=== PATIENT | female | born 1950 | race Caucasian/White ===

== ENCOUNTER 2017-06-16 13:00 | Inpatient (IN) | payer MEDICARE ==
[~2017-06-16] VITALS: Ht 152.4 cm; Wt 57.2 kg
--- NOTE | 2017-06-16 13:00 | NUR ---
BBRA 102 FROM AN URGENT CARE FOR ASTHMA ATTACK, SOB X 3 DAYS
[2017-06-16] MEDS ORDERED: predniSONE 20 MG TABLET ONE (13:52)
--- NOTE | 2017-06-16 13:58 | NUR ---
CALLED RT FOR BREATHING TX
[2017-06-16] MEDS ORDERED: ALBUTEROL FS 2.5 MG/3 ML VIAL.NEB ONE (14:00)
[2017-06-16] MEDS ORDERED: ALBUTEROL FS 2.5 MG/3 ML VIAL.NEB NEB ONE (14:00)
[2017-06-16] MEDS ORDERED: IPRATROPIUM NEB FS 0.5 MG/2.5 ML AMPUL.NEB ONE (14:00)
[2017-06-16] MEDS ORDERED: IPRATROPIUM NEB FS 0.5 MG/2.5 ML AMPUL.NEB NEB ONE (14:00)
[2017-06-16] MEDS ORDERED: predniSONE 20 MG TABLET PO ONE (14:00)
[2017-06-16 14:54] LABS: BASOPHILS # (AUTO) 0.2 /CMM (0.0-0.2); BASOPHILS % (AUTO) 1.6 % (0.0-2.0); EOSINOPHILS % (AUTO) 0.1 % (0.0-6.0); HEMATOCRIT 38 % (33-45); HEMOGLOBIN 13.4 g/dL (11.5-14.8); LYMPHOCYTES # (AUTO) 0.8 /CMM (0.8-4.8); LYMPHOCYTES % (AUTO) 7.7 % (20.0-44.0); MEAN CORPUSCULAR HEMOGLOBIN 34 PG (26.0-33.0); MEAN CORPUSCULAR HGB CONC 36 g/dl (31.0-36.0); MEAN CORPUSCULAR VOLUME 97 fL (82-100); MONOCYTES # (AUTO) 0.6 /CMM (0.1-1.30); MONOCYTES % (AUTO) 5.8 % (2.0-12.0); NEUTROPHILS # (AUTO) 8.7 /CMM (1.8-8.9); NEUTROPHILS % (AUTO) 84.8 % (43.0-81.0); PLATELET COUNT (AUTO) 278 /CMM (150-450); RDW COEFFICIENT OF VARIATION 13.3 (11.5-15.0); RED BLOOD CELL COUNT(AUTO) 3.88 MIL/uL (4.0-5.2); WHITE BLOOD COUNT (AUTO) 10.3 K/uL (4.3-11.0)
[2017-06-16 15:05] LABS: CALCIUM, SERUM 9.4 mg/dL (8.5-10.1); CREATININE 0.6 mg/dL (0.6-1.3); POTASSIUM 4.1 mmol/L (3.5-5.1)
[2017-06-16 15:07] LABS: INR 0.93 (0.87-1.13); PROTHROMBIN TIME 9.7 SECS (9.5-12.7)
[2017-06-16 15:14] LABS: TROPONIN I 1.005 ng/mL (0.00-0.056)
[2017-06-16] MEDS ORDERED: IV NS 0.9% 1,000 ML BAG IV ONE ×2 (15:30→19:30)
--- NOTE | 2017-06-16 15:38 | NUR ---
ERIC PAGED, PAD CUTTER
[2017-06-16] MEDS ORDERED: ASPIRIN 325 MG TABLET ONE (15:47)
[2017-06-16] MEDS ORDERED: ALPR1TAB7 PO (15:59)
[2017-06-16] MEDS ORDERED: DICY10CA59 PO (15:59)
[2017-06-16] MEDS ORDERED: BUTA1CAP46 PO (15:59)
[2017-06-16] MEDS ORDERED: VENL150T PO (15:59)
[2017-06-16] MEDS ORDERED: ZIPR40CA2 PO (15:59)
[2017-06-16] MEDS ORDERED: [UNRECOGNIZED DRUG - CODE] PO (15:59)
[2017-06-16] MEDS ORDERED: METO-358 PO (15:59)
[2017-06-16] MEDS ORDERED: CARI350T PO (15:59)
[2017-06-16] MEDS ORDERED: D-AM10TA2 PO (15:59)
[2017-06-16 16:00] VITALS: BP 143/81
[2017-06-16] MEDS ORDERED: ASPIRIN 325 MG TABLET PO ONE (16:00)
--- NOTE | 2017-06-16 16:14 | NUR ---
GAVE REPORT TO SHALA/TYLER RN ROOM 317-[address] VAUGHN
--- NOTE | 2017-06-16 16:30 | NUR ---
ROOFING MACHINE OPERATOR NOTES RECEIVED PATIENT FROM ER IN STABLE CONDITION NOTED WITH SOB ON EXERTION. PATIENT ON 2 L OF OXYGEN. DENIES ANY CHEST PAIN. REPORTS BEING ANXIOUS. STATES SHE HAS BEEN TO MULTIPLE HOSPITALS DUE TO SOB AND ANXIETY PAST 3 DAYS. PATIENT ORIENTED TO ROOM. CALL LIGHT WITHIN REACH. PERIPHERAL IV ON RIGHT WRIST INTACT PATENT. NOTED WITH ELEVATED TROP MD AWARE WAITING FOR EVALUATION.
--- NOTE | 2017-06-16 17:00 | NUR ---
VIDEO RECORDER MECHANIC NOTES PATIENT IN BED RESTING NO SOB OR ACUTE DISTRESS. DENIES CHEST PAIN. SKIN ASSESSED NOTED WITH BRUISING ON RIGHT EXTREMITY. STATES SHE HAD A FALL COUPLE OF WEEKS AGO. CALL LIGHT WITHIN REACH. PATIENTS FRIEND AT BEDSIDE. WILL CONTINUE TO MONITOR.
[2017-06-16] MEDS ORDERED: PANTOPRAZOLE 40 MG TABLET.DR PO SCH (17:30)
[2017-06-16] MEDS: PANTOPRAZOLE 40 MG TABLET.DR PO SCH (17:37)
[2017-06-16] MEDS ORDERED: ACETAMINOPHEN 325 MG TABLET PO PRN (18:30)
[2017-06-16] MEDS ORDERED: MAG HYDROX/AL HYDROX/SIMETH 30 ML UDC PO PRN (18:30)
[2017-06-16] MEDS ORDERED: ZOLPIDEM TARTRATE 5 MG TABLET PO PRN (18:30)
[2017-06-16] MEDS ORDERED: Z GUARD REMEDY 2 OZ OINT TP PRN (18:30)
[2017-06-16] MEDS ORDERED: DICYCLOMINE HCL 10 MG CAPSULE PO PRN (18:30)
[2017-06-16] MEDS ORDERED: ONDANSETRON HCL/PF 4 MG/2 ML VIAL IVP PRN (18:30)
[2017-06-16] MEDS ORDERED: MAGNESIUM HYDROXIDE 30 ML UDC PO PRN (18:30)
[2017-06-16] MEDS ORDERED: HEPARIN INFUSION/D5W 500 ML IV PRN (19:00)
--- NOTE | 2017-06-16 19:00 | NUR ---
LEAD MINER BLASTING NOTES PATIENT IN BED RESTING NO SOB OR ACUTE DISTRESS NOTED. EVALUATE BY DR. VAUGHN ORDERS NOTED AND CARRIED OUT. ALL DUE MEDICATIONS ADMINISTERED. ALL NEEDS MET. PERIPHERAL IV INTACT PATENT RIGHT WRIST. ENDORSED CARE TO PM SHIFT.
[2017-06-16 20:00] VITALS: BP 132/78
[2017-06-16] MEDS ORDERED: IV NS 0.9% 1,000 ML IV PRN (20:00)
[2017-06-16] MEDS: HYDROCODONE/APAP 5/325MG 1 EACH TABLET PO PRN (21:23)
[2017-06-16] MEDS: CARISOPRODOL 350 MG TABLET PO SCH (21:24)
[2017-06-16] MEDS: ALPRAZOLAM 1 MG TABLET PO SCH ×2 (21:24→21:28)
[2017-06-16] MEDS: ZIPRASIDONE 20 MG CAPSULE PO SCH (21:24)
[2017-06-16] MEDS ORDERED: HEPARIN SODIUM, PORCINE 5000 UNITS/1 ML VIAL ONE ×2 (21:33→21:49)
[2017-06-16] MEDS ORDERED: ALPRAZOLAM 1 MG TABLET PO SCH ×2 (22:00)
[2017-06-16] MEDS ORDERED: HEPARIN INFUSION/D5W 500 ML IV ONE (22:09)
[2017-06-17] VITALS: BP 146/80
[2017-06-17] MEDS ORDERED: HEPARIN SODIUM, PORCINE 5000 UNITS/1 ML VIAL IVP SCH
[2017-06-17] MEDS: HEPARIN INFUSION/D5W 500 ML IV PRN (00:39)
--- NOTE | 2017-06-17 00:39 | NUR ---
HEPARIN DRIP CALCULATED WITH BODY WEIGHT OF 56 KG. HEPARIN DRIP WAS STARTED WITH A LOADING DOSE OF 3360 UNITS. INFUSION TO BE RAN AT 650 UNITS/ HR (13 ML/H). LAB WAS ORDERED FOR 6 HRS AFTER BEGINNING. WILL CONTINUE TO MONITOR PT
--- NOTE | 2017-06-17 00:59 | NUR ---
RESTAURANT ATTENDANT INITIAL NOTE REPORT WAS RECEIVED. PT IS IN BED RESTING, A/O X4 ABLE TO MAKE NEEDS KNOWN. NO SIGNS OF SOB OR DISTRESS, BREATHING EVENLY AND UNLABORED. HEPARIN DRIP WAS STARTED WITH JEYSON ALLEN, EDUCATION WAS GIVEN TO THE PT. BED IS IN LOW AND LOCKED POSITION, CALL LIGHT WITHIN REACH. WILL CONTINUE TO MONITOR PT.
[2017-06-17 04:00] VITALS: BP 135/56
--- NOTE | 2017-06-17 04:00 | NUR ---
GARMENT MENDER NOTES LABS WERE DRAWN, APPT IS 49. NO CHANGES TO BE MADE IN REGARDS TO THE HEPARIN DRIP. NEXT BLOOD DRAW SCHEDULED FOR 1000.
[2017-06-17 05:10] LABS: INR 0.96 (0.87-1.13)
[2017-06-17 05:15] LABS: CALCIUM, SERUM 9.7 mg/dL (8.5-10.1); CREATININE 0.7 mg/dL (0.6-1.3); PHOSPHORUS 1.9 mg/dL (2.5-4.9); POTASSIUM 3.8 mmol/L (3.5-5.1)
[2017-06-17 05:23] LABS: HEMATOCRIT 40 % (33-45); HEMOGLOBIN 13.9 g/dL (11.5-14.8); LYMPHOCYTES # (AUTO) 1.1 /CMM (0.8-4.8); LYMPHOCYTES % (AUTO) 11.2 % (20.0-44.0); MEAN CORPUSCULAR HEMOGLOBIN 34 PG (26.0-33.0); MEAN CORPUSCULAR HGB CONC 34 g/dl (31.0-36.0); MEAN CORPUSCULAR VOLUME 99 fL (82-100); MONOCYTES # (AUTO) 0.6 /CMM (0.1-1.30); MONOCYTES % (AUTO) 6.2 % (2.0-12.0); NEUTROPHILS # (AUTO) 7.8 /CMM (1.8-8.9); NEUTROPHILS % (AUTO) 82.6 % (43.0-81.0); PLATELET COUNT (AUTO) 285 /CMM (150-450); RDW COEFFICIENT OF VARIATION 14.2 (11.5-15.0); RED BLOOD CELL COUNT(AUTO) 4.06 MIL/uL (4.0-5.2); WHITE BLOOD COUNT (AUTO) 9.5 K/uL (4.3-11.0)
--- NOTE | 2017-06-17 06:18 | NUR ---
MACHINE SEWER CLOSING NOTES PT IS IN BED ALERT AND WAKE, FEELING ANXIOUS. NO SIGNS OF SOB OR DISTRESS, BREATHING EVENLY AND UNLABORED ON NC. HEPARIN DRIP IS RUNNING, IVF ARE RUNNING. TELE MONITOR SHOWING SR-100 WITH ELEVATED T WAVES. ALL NEEDS WERE ANTICIPATED AND MET. BED IS IN LOW AND LOCKED POSITION, CALL LIGHT WITHIN REACH. WILL ENDORSE TO DAY SHIFT
--- NOTE | 2017-06-17 07:30 | NUR ---
DRY ICE MACHINE OPERATOR/NOTES RECEIVED PT. IN BED A&OX3. BREATHING UNLABORED ON OXYGEN AT 3L/MIN VIA NASAL CANNULA. NO S/S OF ACUTE DISTRESS. IV FLUIDS RUNNING ON RIGHT ARM HEPARIN DRIP 650 UNITS/HR, AND NORMAL SALINE 75 ML/HR. BED IS IN LOWEST AND LOCKED POSITION. 2 SIDE RAILS UP. CALL LIGHT WITHIN REACH. ALL NEEDS MET. WILL CONTINUE TO ASSESS AND MONITOR.
[2017-06-17 08:00] VITALS: BP 140/80
[2017-06-17] MEDS ORDERED: BUTALB/APAP/CAFFEINE 1 EACH TABLET PO PRN (08:00)
[2017-06-17] MEDS ORDERED: METOPROLOL SUCCINATE 50 MG TAB.SR.24H PO SCH (09:00)
[2017-06-17] MEDS ORDERED: THYROID 60 MG TABLET PO SCH (09:00)
[2017-06-17] MEDS ORDERED: ZIPRASIDONE 20 MG CAPSULE PO SCH (09:00)
[2017-06-17] MEDS: ASPIRIN EC 81 MG TABLET.DR PO SCH (10:41)
[2017-06-17] MEDS: PANTOPRAZOLE 40 MG TABLET.DR PO SCH (10:41)
[2017-06-17] MEDS: VENLAFAXINE XR 75 MG CAP.SR.24H PO SCH ×2 (10:42→19:08)
[2017-06-17] MEDS: ZIPRASIDONE 20 MG CAPSULE PO SCH ×2 (10:42→19:08)
[2017-06-17 11:55] LABS: INR 0.93 (0.87-1.13); PROTHROMBIN TIME 9.7 SECS (9.5-12.7)
[2017-06-17 12:02] LABS: CREATININE, URINE 36.7 MG/DL (30.0-125.0)
[2017-06-17] MEDS: THYROID 30 MG TABLET PO SCH (13:05)
[2017-06-17] MEDS ORDERED: CLON0.5T PO (13:36)
[2017-06-17] MEDS ORDERED: HYDR-3205 PO (13:36)
[2017-06-17] MEDS: clonazePAM 0.5 MG TABLET PO PRN (13:55)
[2017-06-17] MEDS: HYDROCODONE/APAP 5/325MG 1 EACH TABLET PO PRN ×2 (13:56→20:10)
[2017-06-17 16:00] VITALS: BP 167/97
[2017-06-17] MEDS ORDERED: Sodium Phosphate 15 MMOL in IV D5W 250 ML IV ONE (16:00)
[2017-06-17] MEDS ORDERED: METOPROLOL TARTRATE INJ 5 MG/5 ML AMPUL ONE ×2 (17:26→18:05)
[2017-06-17 17:32] LABS: INR 0.96 (0.87-1.13)
[2017-06-17] MEDS ORDERED: IOHEXOL-350 100 ML VIAL IV ONE (18:02)
[2017-06-17] MEDS ORDERED: IV NS 0.9% 250 ML IV ONE (18:03)
[2017-06-17] MEDS ORDERED: FUROSEMIDE 20 MG/2 ML VIAL IV ONE (19:00)
[2017-06-17] MEDS ORDERED: ALBUTEROL FS 2.5 MG/0.5 ML VIAL.NEB ONE (19:00)
[2017-06-17] MEDS ORDERED: IPRATROPIUM NEB FS 0.5 MG/2.5 ML AMPUL.NEB ONE (19:00)
[2017-06-17] MEDS: ALBUTEROL FS 2.5 MG/0.5 ML VIAL.NEB NEB PRN (19:13)
[2017-06-17] MEDS: IPRATROPIUM NEB FS 0.5 MG/2.5 ML AMPUL.NEB NEB PRN (19:13)
--- NOTE | 2017-06-17 19:30 | NUR ---
PUBLIC WEIGHER/NOTES PT. IS IN BED A&OX3. BREATHING UNLABORED ON OXYGEN 2L/MIN VIA NASAL CANNULA. NO S/S OF ACUTE DISTRESS. IV FLUIDS RUNNING, HEPARIN DRIP AT 850 UNITS/HR. BED IS IN LOWEST AND LOCKED POSITION. 2 SIDE RAILS UP. CALL LIGHT WITHIN REACH. ALL NEEDS MET. WILL ENDORSE REPORT TO NURSE.
--- NOTE | 2017-06-17 19:40 | NUR ---
DRY CELL SEALER INITIAL NOTES PT IS IN BED AWAKE AND ALERT WITH FAMILY AT BEDSIDE. ON 2L NC, BREATHING SHALLOW BUT NO SIGNS OF DISTRESS. DENIES PAIN. PT IS NOT CURRENTLY ON TELE, WILL PLACE TELE MONITOR BACK ON PT. HEPARIN DRIP RUNNING AT 850 UNITS/ HR, NEXT LAB IS ALREADY SCHEDULED. BED IS IN LOW AND LOCKED POSITION, CALL LIGHT WITHIN REACH. WILL CONTINUE TO MONITOR PT
[2017-06-17 20:00] VITALS: BP 148/83
[2017-06-17] MEDS: ATORVASTATIN 10 MG TABLET PO SCH (21:07)
[2017-06-17] MEDS: CARISOPRODOL 350 MG TABLET PO SCH (21:08)
[2017-06-17] MEDS: ALPRAZOLAM 1 MG TABLET PO SCH (21:08)
[2017-06-18] VITALS: BP 143/86
[2017-06-18] MEDS: HEPARIN INFUSION/D5W 500 ML IV PRN (00:33)
[2017-06-18] MEDS: IPRATROPIUM NEB FS 0.5 MG/2.5 ML AMPUL.NEB NEB PRN ×2 (01:16→21:38)
[2017-06-18] MEDS: ALBUTEROL FS 2.5 MG/0.5 ML VIAL.NEB NEB PRN ×2 (01:16→21:38)
[2017-06-18 01:35] LABS: INR 0.96 (0.87-1.13)
--- NOTE | 2017-06-18 01:50 | NUR ---
HEPARIN DRIP APPT RESULTED AT 45, PER HEPARIN PROTOCOL DRIP WILL BE INCREASED BY 100 UNITS. THE RATE WILL NOW BE 950 UNITS/ HR. LABS ORDERED FOR 0750
[2017-06-18] MEDS: HYDROCODONE/APAP 5/325MG 1 EACH TABLET PO PRN ×5 (02:50→19:31)
[2017-06-18 04:00] VITALS: BP 131/73
--- NOTE | 2017-06-18 06:43 | NUR ---
PUTTYING AND CALKING SUPERVISOR CLOSING NOTES PT IS IN BED AWAKE AND ALERT, STATING THAT THE MEDICATION REGIMEN HELP A LOT LAST NIGHT. BREATHING EVENLY AND UNLABORED ON 2L NC. NO SIGNS OF SOB OR DISTRESS. TELE MONITOR SHOWING SR 79 WITH OCCASIONAL PVC'S. LAB SET TO BE DONE AT 0750 (PT&PTT). HEPARIN INFUSING AT 950 UNITS/HR. ALL NEEDS WERE ANTICIPATED AND MET. BED IS IN LOW AND LOCKED POSITION, CALL LIGHT WITHIN REACH. WILL ENDORSE TO DAYSHIFT
[2017-06-18] MEDS: PANTOPRAZOLE 40 MG TABLET.DR PO SCH (06:54)
[2017-06-18 08:00] VITALS: BP 128/63
[2017-06-18] MEDS: THYROID 30 MG TABLET PO SCH (08:25)
[2017-06-18] MEDS: VENLAFAXINE XR 75 MG CAP.SR.24H PO SCH ×2 (08:25→16:29)
[2017-06-18] MEDS: ASPIRIN EC 81 MG TABLET.DR PO SCH (08:25)
[2017-06-18] MEDS: ZIPRASIDONE 20 MG CAPSULE PO SCH ×2 (08:26→16:30)
[2017-06-18] MEDS ORDERED: DEXTROAMPHETAMINE SULFATE 20 MG PO SCH (09:00)
[2017-06-18 09:12] LABS: INR 0.96 (0.87-1.13)
[2017-06-18] MEDS: clonazePAM 0.5 MG TABLET PO PRN (09:55)
[2017-06-18 12:00] VITALS: BP 143/90
[2017-06-18 13:11] LABS: CALCIUM, SERUM 9.3 mg/dL (8.5-10.1); CREATININE 0.8 mg/dL (0.6-1.3)
[2017-06-18] MEDS: LEVOFLOXACIN 500 MG /D5W 100ML 500 MG in PREMIX 1 EA IV SCH (13:16)
[2017-06-18] MEDS: AMLODIPINE BESYLATE 5 MG TABLET PO SCH (14:43)
[2017-06-18 16:00] VITALS: BP 114/81
--- NOTE | 2017-06-18 18:49 | NUR ---
Tele/RN - Notes Patient alert and oriented throughout the shift, denies chest pain, tele SR with PVCs, no apparent distress seen. Heparin drip discontinued. Patient did well with PT treatment. Patient c/o back and neck pain, administered Sheldon 5/325 mg 1 tab q4h PRN with relief. Continue breathing treatment and Levaquin IV for pneumonia. All needs attended and met. Will continue with current medical management.
--- NOTE | 2017-06-18 19:40 | NUR ---
CANINE DEPUTY INITIAL NOTES PT IS IN BED AWAKE AND ALERT, ABLE TO MAKE NEEDS KNOWN. ON 2L NC, BREATHING EVENLY AND UNLABORED, NO SIGNS OF DISTRESS. DENIES PAIN. PT IS ON TELE MONITOR SHOWING SR 101 WITH OCCASIONAL PVC. IV ACCESS IS INTACT AND PATENT ON SL. BED IS IN LOW AND LOCKED POSITION, CALL LIGHT WITHIN REACH. WILL CONTINUE TO MONITOR PT
[2017-06-18 20:00] VITALS: BP 121/84
[2017-06-18] MEDS: ATORVASTATIN 10 MG TABLET PO SCH (21:03)
[2017-06-18] MEDS: ALPRAZOLAM 1 MG TABLET PO SCH (21:04)
[2017-06-18] MEDS: CARISOPRODOL 350 MG TABLET PO SCH (21:04)
[2017-06-18 23:18] LABS: APPEARANCE,URINE CLEAR (CLEAR); BILIRUBIN,URINE NEGATIVE (NEGATIVE); BLOOD, URINE 1+ Ery/uL (NEGATIVE); COLOR,URINE YELLOW (YELLOW); KETONES,URINE NEGATIVE (NEGATIVE); LEUKOCYTE ESTERASE ,URINE NEGATIVE (NEGATIVE); NITRITE, URINE NEGATIVE (NEGATIVE); PH,URINE 6.5 (5.0-8.0); PROTEIN,URINE NEGATIVE (NEGATIVE); UGLUCOSE NEGATIVE (NEGATIVE); UROBILINOGEN,URINE 0.2 EU/dL (0.2)
[2017-06-18 23:35] LABS: BACTERIA,URINE Few /HPF (None Seen); SQUAMOUS EPITHELIAL CELL,UR Few /HPF (None Seen); WBC,URINE 0-2 /HPF (0-3)
[2017-06-19] VITALS: BP 113/77
[2017-06-19] MEDS: HYDROCODONE/APAP 5/325MG 1 EACH TABLET PO PRN ×4 (01:21→15:28)
[2017-06-19 04:00] VITALS: BP 127/76
[2017-06-19] MEDS: IPRATROPIUM NEB FS 0.5 MG/2.5 ML AMPUL.NEB NEB PRN (05:25)
[2017-06-19] MEDS: ALBUTEROL FS 2.5 MG/0.5 ML VIAL.NEB NEB PRN (05:25)
--- NOTE | 2017-06-19 06:13 | NUR ---
ROASTER SUPERVISOR CLOSING NOTES PT IS IN BED SLEEPING, EASILY AROUSED. NO SIGNS OF SOB OR DISTRESS. BREATHING EVENLY AND UNLABORED ON 2L NC. TELE MONITOR SHOWING SR WITH PVC. PRN BREATHING TX USED THROUGHOUT THE NIGHT. DENIES PAIN AT THIS TIME. ALL NEEDS WERE ANTICIPATED AND MET. BED IS IN LOW AND LOCKED POSITION, CALL LIGHT WITHIN REACH. WILL ENDORSE TO DAYSHIFT.
[2017-06-19] MEDS: PANTOPRAZOLE 40 MG TABLET.DR PO SCH (06:42)
--- NOTE | 2017-06-19 07:15 | NUR ---
RN OPENING NOTES PER TELE MONITOR READING SINUS RHYTHM 94 BPM, WITH PVC'S, AND TRIGEMINY.
--- NOTE | 2017-06-19 07:30 | NUR ---
RN OPENING NOTES RECEIVED PT. IN BED A&OX4. BREATHING UNLABORED ON OXYGEN AT 2L/MIN VIA NASAL CANNULA. NO S/S OF ACUTE DISTRESS. IV ACCESS SITES ARE INTACT AND PATENT. NO S/S OF ACUTE DISTRESS. BED IS IN LOWEST, AND LOCKED POSITION. 2 SIDE RAILS UP, AND INSTRUCTED PT. TO USE CALL LIGHT FOR ASSISTANCE. WILL CONTINUE TO ASSESS AND MONITOR PT.
[2017-06-19 07:47] LABS: BASOPHILS % (AUTO) 0.1 % (0.0-2.0); EOSINOPHILS # (AUTO) 0.1 /CMM (0.0-0.7); EOSINOPHILS % (AUTO) 0.8 % (0.0-6.0); HEMATOCRIT 36 % (33-45); HEMOGLOBIN 12.6 g/dL (11.5-14.8); LYMPHOCYTES # (AUTO) 1.3 /CMM (0.8-4.8); MEAN CORPUSCULAR HEMOGLOBIN 35 PG (26.0-33.0); MEAN CORPUSCULAR HGB CONC 35 g/dl (31.0-36.0); MEAN CORPUSCULAR VOLUME 99 fL (82-100); MONOCYTES % (AUTO) 12.4 % (2.0-12.0); NEUTROPHILS # (AUTO) 5.7 /CMM (1.8-8.9); NEUTROPHILS % (AUTO) 70.7 % (43.0-81.0); PLATELET COUNT (AUTO) 265 /CMM (150-450); RDW COEFFICIENT OF VARIATION 14.1 (11.5-15.0); RED BLOOD CELL COUNT(AUTO) 3.64 MIL/uL (4.0-5.2); WHITE BLOOD COUNT (AUTO) 8.1 K/uL (4.3-11.0)
[2017-06-19 08:00] VITALS: BP 134/84
[2017-06-19 08:33] LABS: CALCIUM, SERUM 9.4 mg/dL (8.5-10.1); CREATININE 0.7 mg/dL (0.6-1.3); POTASSIUM 3.2 mmol/L (3.5-5.1)
[2017-06-19] MEDS: THYROID 30 MG TABLET PO SCH (09:43)
[2017-06-19] MEDS: VENLAFAXINE XR 75 MG CAP.SR.24H PO SCH ×2 (09:44→17:00)
[2017-06-19] MEDS: ZIPRASIDONE 20 MG CAPSULE PO SCH ×2 (09:44→17:00)
[2017-06-19] MEDS: ASPIRIN EC 81 MG TABLET.DR PO SCH (09:45)
[2017-06-19] MEDS: AMLODIPINE BESYLATE 5 MG TABLET PO SCH (09:45)
--- NOTE | 2017-06-19 10:44 | NUR ---
RN NOTES CALLED PHARMACY TO NOTIFY POTASSIUM LEVEL 3.2, PER MD OKAY TO REPLACE WITH PO POTASSIUM. PER MD SODIUM LEVELS ARE OKAY.
[2017-06-19] MEDS ORDERED: ATOR10TA PO (10:49)
[2017-06-19] MEDS ORDERED: AMLO5TAB2 PO (10:49)
[2017-06-19] MEDS ORDERED: ASPI-1152 PO (10:49)
[2017-06-19] MEDS ORDERED: LEVO500T75 PO (10:55)
[2017-06-19] MEDS: POTASSIUM CHLORIDE 20 MEQ TAB.PRT.SR PO SCH ×2 (12:40→14:03)
[2017-06-19] MEDS: LEVOFLOXACIN 500 MG /D5W 100ML 500 MG in PREMIX 1 EA IV SCH (12:42)
[2017-06-19] MEDS: clonazePAM 0.5 MG TABLET PO PRN (14:11)
[2017-06-19 15:57] VITALS: BP 95/74
--- NOTE | 2017-06-19 17:15 | NUR ---
ADOPTION COUNSELOR NOTES PT.'S SON IS AT THE BEDSIDE. PT. WAS PROVIDED DISCHARGE INSTRUCTIONS, WITH EDUCATION, AND VERBALIZED UNDERSTANDING. ID BAND, AND IVS WERE REMOVED WITHOUT COMPLICATIONS. MEDICATION EDUCATION WAS GIVEN AND PT. VERBALIZED UNDERSTANDING. ALL QUESTIONS WERE ANSWERED.
--- NOTE | 2017-06-19 17:24 | NUR ---
RN NOTES PT. LEFT ROOM WITH COLLEGE ADMISSIONS COUNSELOR IN A WHEEL CHAIR IN MEDICALLY STABLE CONDITION WITH DISCHARGE PACKET.
== END 2017-06-19 17:23 | disposition home or self-care (01) | DRG 280 ==
LOC: ER 13:03 → TELE 16:27
PROVIDERS: ADMIT Family Medicine; ATTEND Family Medicine
DX: I21.4 Non-ST elevation (NSTEMI) myocardial infarction (principal); J15.9 Unspecified bacterial pneumonia; E87.1 Hypo-osmolality and hyponatremia; Z79.899 Other long term (current) drug therapy; F17.200 Nicotine dependence, unspecified, uncomplicated; E03.9 Hypothyroidism, unspecified; F41.9 Anxiety disorder, unspecified; J45.909 Unspecified asthma, uncomplicated; Z98.1 Arthrodesis status; G89.29 Other chronic pain; F41.0 Panic disorder [episodic paroxysmal anxiety]; F32.9 Major depressive disorder, single episode, unspecified; Z79.82 Long term (current) use of aspirin
CPT/HCPCS: 36415; 71045-TC; 75574; 80048-TC; 80061-TC; 81000-TC; 82570-TC; 83735-TC; 83880; 83935-TC; 84100-TC; 84484-TC; 85025-TC; 85610-TC; 85730-TC; 87081-TC; 93307-TC; 97110-TC; 97116-TC; 97530-TC; A4216; A9563; J1644; J1940; J1956; J3490; J7030; J7050; J7060; Q9967

== ENCOUNTER 2019-03-15 15:26 | Emergency (ER) | payer MEDICARE ==
[~2019-03-15] VITALS: Ht 142.2 cm; Wt 48.1 kg
[~2019-03-15 15:26] MED LIST: ALPR1TAB7 PO; AMLO5TAB9 PO; ASPI-1152 PO; ATOR10TA PO; BUTA1CAP46 PO; CARI350T PO; CLON0.5T PO; D-AM10TA2 PO; DICY10CA59 PO; LEVO500T75 PO; VENL150T PO; ZIPR40CA2 PO; [UNRECOGNIZED DRUG - CODE] PO
--- NOTE | 2019-03-15 16:14 | NUR ---
wheeled patient via gurney going for CT scan
[2019-03-15] MEDS ORDERED: HYDROCODONE/APAP 5/325MG 1 EACH TABLET ONE (16:29)
[2019-03-15] MEDS ORDERED: HYDROCODONE/APAP 5/325MG 1 EACH TABLET PO ONE (16:30)
--- NOTE | 2019-03-15 16:31 | NUR ---
patient came back from CT
--- NOTE | 2019-03-15 17:33 | NUR ---
Patient discharged to home in stable condition. Written and verbal after care instructions given. Patient verbalizes understanding of instruction.
[2019-03-15 17:49] VITALS: BP 128/71
== END 2019-03-15 17:49 | disposition home or self-care (01) ==
LOC: ER 15:28
DX: S00.11XA Contusion of right eyelid and periocular area, initial encounter (principal); S00.412A Abrasion of left ear, initial encounter; S50.311A Abrasion of right elbow, initial encounter; S80.212A Abrasion, left knee, initial encounter; S80.211A Abrasion, right knee, initial encounter; J45.909 Unspecified asthma, uncomplicated; F41.9 Anxiety disorder, unspecified; R51 Headache; Z79.82 Long term (current) use of aspirin; W01.198A Fall on same level from slipping, tripping and stumbling with subsequent striking against other object, initial encounter; Y93.01 Activity, walking, marching and hiking; Y92.488 Other paved roadways as the place of occurrence of the external cause; Y99.8 Other external cause status
CPT/HCPCS: 70450-TC; 72125-TC; 73060-TC

== ENCOUNTER 2019-11-13 07:36 | Emergency (ER) | payer MEDICARE ==
[~2019-11-13] VITALS: Ht 152.4 cm; Wt 45.4 kg
--- NOTE | 2019-11-13 07:46 | NUR ---
PT BIBRA FROM HOME, C/O FELLING WEAK. BEEN HAVING WIDRAWAL FROM [facility] SINCE NOT TAKING IT FOR 2-3 DAYS. PT STATES SHE TOOK "FENTANYL" THIS MORNING. VITAL SIGN IS STABLE. DENIES CHEST PAIN. REQUESTING TO GO ON DETOX. AWAITING MD AVERY.
--- NOTE | 2019-11-13 08:02 | NUR ---
DR POOL AT BEDSIDE FOR EVAL.
[2019-11-13] MEDS ORDERED: CHLORDIAZEPOXIDE HCL 25 MG CAPSULE PO ONE (08:30)
[2019-11-13] MEDS ORDERED: CHLORDIAZEPOXIDE HCL 25 MG CAPSULE ONE (08:41)
[2019-11-13 09:42] VITALS: BP 138/82
--- NOTE | 2019-11-13 09:42 | NUR ---
Patient discharged to home in stable condition. Written and verbal after care instructions given. Patient verbalizes understanding of instruction.
[2019-11-14] MEDS ORDERED: LEVO137T2 (11:02)
[2019-11-14] MEDS ORDERED: DULO30CA2 PO (11:02)
[2019-11-14] MEDS ORDERED: ZIPR40CA2 PO (11:02)
[2019-11-14] MEDS ORDERED: LISD50CA2 PO (11:02)
[2019-11-14] MEDS ORDERED: ICOS1CAP PO (11:02)
[2019-11-14] MEDS ORDERED: GABA-534 PO (11:02)
== END 2019-11-13 09:42 | disposition home or self-care (01) ==
LOC: ER 07:39
DX: F13.90 Sedative, hypnotic, or anxiolytic use, unspecified, uncomplicated (principal); F11.10 Opioid abuse, uncomplicated; F10.231 Alcohol dependence with withdrawal delirium; J45.909 Unspecified asthma, uncomplicated; F41.9 Anxiety disorder, unspecified; Z79.899 Other long term (current) drug therapy; Z79.82 Long term (current) use of aspirin

== ENCOUNTER 2019-11-14 08:36 | Inpatient (IN) | payer MEDICARE ==
[~2019-11-14] VITALS: Ht 139.7 cm; Wt 48.1 kg
--- NOTE | 2019-11-14 08:38 | NUR ---
pt bibra from home to er bed 10. pt is aaox3 c/o generalized body aches, muscle cramping. pt was seen here yesterday for same reason. per ems report, family is concern that she has taken all her prescribed medication. 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 awaiting md rainey.
--- NOTE | 2019-11-14 08:52 | NUR ---
dr nguyễn at bedside for eval.
--- NOTE | 2019-11-14 08:55 | NUR ---
iv line started blood drawn and sent to lab.
[2019-11-14] MEDS ORDERED: MORPHINE SULFATE INJ 2 MG/ML DISP.SYRIN IV ONE (09:00)
[2019-11-14] MEDS ORDERED: MORPHINE SULFATE INJ 2 MG/ML DISP.SYRIN ONE (09:14)
[2019-11-14 09:20] LABS: APPEARANCE,URINE Clear (CLEAR); BILIRUBIN,URINE Negative (NEGATIVE); BLOOD, URINE Negative Ery/uL (NEGATIVE); COLOR,URINE Yellow (YELLOW); KETONES,URINE Negative (NEGATIVE); LEUKOCYTE ESTERASE ,URINE Negative (NEGATIVE); NITRITE, URINE Negative (NEGATIVE); PH,URINE 8.5 (5.0-8.0); PROTEIN,URINE 100 mg/dl (NEGATIVE); UGLUCOSE Negative (NEGATIVE); UROBILINOGEN,URINE 0.2 EU/dL (0.2)
[2019-11-14 09:21] LABS: BACTERIA,URINE None seen /HPF (None Seen); RBC,URINE 0-1 /HPF (0-2); SQUAMOUS EPITHELIAL CELL,UR Rare /HPF (None Seen); WBC,URINE 0-2 /HPF (0-3)
[2019-11-14 09:22] LABS: MUCUS,URINE Moderate /LPF (None Seen)
[2019-11-14 09:23] LABS: BASOPHILS # (AUTO) 0.1 /CMM (0.0-0.2); BASOPHILS % (AUTO) 0.9 % (0.0-2.0); EOSINOPHILS % (AUTO) 0.1 % (0.0-6.0); HEMATOCRIT 50 % (33-45); HEMOGLOBIN 16.5 g/dL (11.5-14.8); LYMPHOCYTES # (AUTO) 1.4 /CMM (0.8-4.8); LYMPHOCYTES % (AUTO) 18.4 % (20.0-44.0); MEAN CORPUSCULAR HGB CONC 33 g/dl (31.0-36.0); MEAN CORPUSCULAR VOLUME 93 fL (82-100); MONOCYTES # (AUTO) 0.5 /CMM (0.1-1.30); MONOCYTES % (AUTO) 6.1 % (2.0-12.0); NEUTROPHILS # (AUTO) 5.5 /CMM (1.8-8.9); NEUTROPHILS % (AUTO) 74.5 % (43.0-81.0); PLATELET COUNT (AUTO) 315 /CMM (150-450); RED BLOOD CELL COUNT(AUTO) 5.35 MIL/uL (4.0-5.2); WHITE BLOOD COUNT (AUTO) 7.4 K/uL (4.3-11.0)
[2019-11-14 09:29] LABS: CALCIUM, SERUM 10.2 mg/dL (8.5-10.1); CARBON DIOXIDE 32 mmol/L (21-32); CHLORIDE 99 mmol/L (98-107); GLUCOSE 142 mg/dL (74-106); SODIUM SERUM 138 mmol/L (136-145); UREA NITROGEN, BLOOD 16 mg/dL (7-18)
[2019-11-14 09:34] LABS: ALANINE AMINOTRANSFERASE 29 U/L (12-78); ALBUMIN 4.7 g/dL (3.4-5.0); ALCOHOL, BLOOD < 3 mg/dL (0-0); ALKALINE PHOSPHATASE 78 U/L (46-116); ASPARTATE AMINOTRANSFERASE 26 U/L (15-37); BILIRUBIN,DIRECT 0.1 mg/dL (0.0-0.2); BILIRUBIN,TOTAL 0.4 mg/dL (0.2-1.0); SALICYLATE 2.8 mg/dL (2.8-20.0); TOTAL PROTEIN, SERUM 8.3 g/dL (6.4-8.2)
[2019-11-14 09:35] LABS: ACETAMINOPHEN < 2 ug/ml (10-30)
--- NOTE | 2019-11-14 10:41 | NUR ---
report given to kishor may. pt awaiting transfer to floor.
[2019-11-14] MEDS ORDERED: ZIPR40CA2 PO (11:02)
[2019-11-14] MEDS ORDERED: GABA-534 PO (11:02)
[2019-11-14] MEDS ORDERED: LEVO137T2 (11:02)
[2019-11-14] MEDS ORDERED: LISD50CA2 PO (11:02)
[2019-11-14] MEDS ORDERED: DULO30CA2 PO (11:02)
[2019-11-14] MEDS ORDERED: ICOS1CAP PO (11:02)
[2019-11-14 11:30] VITALS: BP 139/93
[2019-11-14] MEDS ORDERED: MAGNESIUM HYDROXIDE 30 ML UDC PO PRN (11:30)
[2019-11-14] MEDS ORDERED: ONDANSETRON HCL/PF 4 MG/2 ML VIAL IVP PRN (11:30)
[2019-11-14] MEDS ORDERED: ACETAMINOPHEN 325 MG TABLET PO PRN (11:30)
[2019-11-14] MEDS ORDERED: Z GUARD REMEDY 2 OZ OINT TP PRN (11:30)
[2019-11-14] MEDS ORDERED: ENOXAPARIN SODIUM 40 MG/0.4 ML DISP.SYRIN SQ SCH (11:30)
[2019-11-14] MEDS ORDERED: DICYCLOMINE HCL 10 MG CAPSULE PO PRN (11:30)
[2019-11-14] MEDS ORDERED: MAG HYDROX/AL HYDROX/SIMETH 30 ML UDC PO PRN (11:30)
[2019-11-14] MEDS ORDERED: THYROID 60 MG TABLET PO SCH (12:00)
[2019-11-14] MEDS: ENOXAPARIN SODIUM 40 MG/0.4 ML DISP.SYRIN SQ SCH (12:04)
[2019-11-14] MEDS: GABAPENTIN 300 MG CAPSULE PO SCH ×2 (12:06→16:35)
[2019-11-14] MEDS: DIAZEPAM 5 MG TABLET PO SCH ×2 (12:06→20:01)
[2019-11-14] MEDS: THYROID 30 MG TABLET PO SCH (12:19)
--- NOTE | 2019-11-14 12:25 | NUR ---
MS/RN NOTE PER TEMPLATE WORKER VERNON OK TO SERVE LUNCH. NOTED AND CARRIED OUT.
[2019-11-14] MEDS ORDERED: HYDROCODONE/APAP 5/325MG 1 EACH TABLET PO PRN (13:00)
--- NOTE | 2019-11-14 14:36 | NUR ---
FAMILY CONTACT: SW received a call from pts sister Jennifer ([phone]) requesting medical informant SW advised sister to call pts nurse to request medical information. Sister also inquired on detox facilities and SW provided her with resources and information.
[2019-11-14 16:00] VITALS: BP 154/99
[2019-11-14] MEDS: ZIPRASIDONE 20 MG CAPSULE PO SCH (16:35)
--- NOTE | 2019-11-14 16:50 | NUR ---
/JEYSON CLOSING NOTES PATIENT BROUGHT FROM ED AT 1109HRS. ANJUM IS ALERT AND OREINTED X 3 AND CAN MAKE NEEDS KNOW TO STAFF MEMBERS. NO SIGNS OF SOB OR LABORED BREATHING. NO ACUTE DISTRESS NOTED. PATIENT IS STATURING WELL ON ROOM AIR. PATIENT SKIN IS WARM TO TOUCH, DRY AND INTACT.HAS IV ACCESS LEFT UPPER ARM, SALINE LOCK. ANJUM STATES NO PAIN AT THIS TIME. PATIENT HAS LOWER EXTREMITY WEAKNESS BILATERAL. PATIENT CAN AMBULATE WITH ASSIST. NEEDS HAVE BEEN MET DURING SHIFT. SAFETY MEASURES IN PLACE, BED LOW AND LOCKED IN SEMI FOWLERS POSITION. CALL LIGHT IS WITHIN REACH. WILL ENDORSE CARE TO ON COMING SHIFT. Addendum: 11/14/19 at 1914 by LEILA SMALL RN / JEYSON CLOSING NOTES CLOSING NOTES TIME CORRECTION 1850 HOURS
[2019-11-14] MEDS ORDERED: ICOSAPENT ETHYL PO SCH (17:00)
[2019-11-14] MEDS ORDERED: ZIPRASIDONE HCL 40 MG PO SCH (17:00)
--- NOTE | 2019-11-14 18:49 | NUR ---
MS/RN NOTE SUBHA GRAHAME IS MADE AWARE THAT THE PATIENT HAS HX OF DEPRESSION AND HX OF WANTING TO HARM SELF STATED BY THE PATIENT. RECEIVED ORDER OF PSYCH CONSULT. NOTED AND CARRIED OUT. THE PATIENT DENIES SI/HI AT THIS TIME. Addendum: 11/14/19 at 1851 by JOVANNY CARREON RN /JEYSON NOTE THE PATIENT DENIES WANTING TO HARM SELF AT THIS TIME.
--- NOTE | 2019-11-14 19:39 | NUR ---
MS RN OPENING NOTES PATIENT RECEIVED RESTING IN BED A/O X 3. STABLE ON RA WITH BREATHING EVEN AND UNLABORED, NO SOB NOTED. NO SIGNS OF ACUTE DISTRESS. NO COMPLAINTS OF PAIN OR DISCOMFORT AT THE MOMENT. IV LOCATED ON LAC #20 SL. SAFETY PRECAUTIONS IN PLACE WITH BED IN LOWEST POSITION, CALL LIGHT WITHIN REACH, BREAKS ON, SIDE RAILS UP. WILL CONTINUE TO MONITOR THROUGHOUT THE NIGHT.
[2019-11-14 20:00] VITALS: BP 132/91
[2019-11-14] MEDS: ATORVASTATIN 10 MG TABLET PO SCH (22:55)
[2019-11-15] MEDS ORDERED: LORAZEPAM 1 MG TABLET PO PRN (03:45)
--- NOTE | 2019-11-15 04:07 | NUR ---
MS RN NOTES PATIENT COMPLAINING OF RESTLESS LEGS- WITHDRAWAL SYMPTOM, REQUESTING FOR MEDICATION. CONTACTED MD VAUGHN, ORDERED ATIVAN 1MG PO ONCE. ADMINISTERED ATIVAN.
[2019-11-15] MEDS: DIAZEPAM 5 MG TABLET PO SCH ×3 (05:00→21:45)
--- NOTE | 2019-11-15 05:06 | NUR ---
MS RN NOTES DID NOT ADMINISTER SCHEDULED DIAZEPAM, RECENT ADMINISTRATION OF 1 MGOF ATIVAN AT 0350. PATIENT AWARE.
--- NOTE | 2019-11-15 06:44 | NUR ---
MS RN CLOSING NOTES PATIENT RESTING IN BED A/O X 3. STABLE ON RA WITH BREATHING EVEN AND UNLABORED, NO SOB NOTED. NO SIGNS OF ACUTE DISTRESS. NO COMPLAINTS OF PAIN OR DISCOMFORT AT THE MOMENT. IV LOCATED ON LAC #20 SL. SAFETY PRECAUTIONS IN PLACE WITH BED IN LOWEST POSITION, CALL LIGHT WITHIN REACH, BREAKS ON, SIDE RAILS UP. ALL NEEDS ATTENDED TO. WILL ENDORSE TO ONCOMING SHIFT ABOUT GRACE.
[2019-11-15 07:16] LABS: BASOPHILS % (AUTO) 0.4 % (0.0-2.0); EOSINOPHILS % (AUTO) 0.1 % (0.0-6.0); HEMATOCRIT 49 % (33-45); HEMOGLOBIN 16.3 g/dL (11.5-14.8); LYMPHOCYTES # (AUTO) 1.9 /CMM (0.8-4.8); LYMPHOCYTES % (AUTO) 20.5 % (20.0-44.0); MEAN CORPUSCULAR HGB CONC 33 g/dl (31.0-36.0); MEAN CORPUSCULAR VOLUME 92 fL (82-100); MONOCYTES # (AUTO) 0.7 /CMM (0.1-1.30); MONOCYTES % (AUTO) 7.9 % (2.0-12.0); NEUTROPHILS # (AUTO) 6.5 /CMM (1.8-8.9); NEUTROPHILS % (AUTO) 71.1 % (43.0-81.0); PLATELET COUNT (AUTO) 317 /CMM (150-450); RED BLOOD CELL COUNT(AUTO) 5.37 MIL/uL (4.0-5.2); WHITE BLOOD COUNT (AUTO) 9.2 K/uL (4.3-11.0)
[2019-11-15 07:20] LABS: CALCIUM, SERUM 9.5 mg/dL (8.5-10.1); CREATININE 0.9 mg/dL (0.6-1.3); MAGNESIUM 2.2 mg/dL (1.8-2.4); PHOSPHORUS 3.1 mg/dL (2.5-4.9); POTASSIUM 3.9 mmol/L (3.5-5.1)
[2019-11-15 07:21] LABS: THYROID STIMULATING HORMONE 0.048 uIU/mL (0.358-3.74)
[2019-11-15 08:00] VITALS: BP 158/98
[2019-11-15] MEDS: AMLODIPINE BESYLATE 5 MG TABLET PO SCH (08:21)
[2019-11-15] MEDS: ZIPRASIDONE 20 MG CAPSULE PO SCH ×2 (08:21→17:09)
[2019-11-15] MEDS: ASPIRIN EC 81 MG TABLET.DR PO SCH (08:21)
[2019-11-15] MEDS: GABAPENTIN 300 MG CAPSULE PO SCH ×3 (08:22→17:09)
[2019-11-15] MEDS: THYROID 30 MG TABLET PO SCH (08:22)
[2019-11-15] MEDS: DULOXETINE HCL 30 MG CAPSULE.DR PO SCH (08:22)
[2019-11-15] MEDS: ENOXAPARIN SODIUM 40 MG/0.4 ML DISP.SYRIN SQ SCH (08:28)
[2019-11-15] MEDS ORDERED: LISDEXAMFETAMINE DIMESYLATE PO SCH (09:00)
[2019-11-15] MEDS: LEVOTHYROXINE SODIUM 137 MCG TABLET PO SCH (09:08)
--- NOTE | 2019-11-15 09:16 | NUR ---
PATIENT SEEN BY .
[2019-11-15 16:00] VITALS: BP 130/91
--- NOTE | 2019-11-15 18:12 | NUR ---
PATIENT STABLE ON RA WITH BREATHING EVEN AND UNLABORED, NO SOB NOTED. NO SIGNS OF ACUTE DISTRESS. NO COMPLAINTS OF PAIN OR DISCOMFORT AT THE MOMENT. IV ON LAC #20 SL., FLUSHING WELL.AL;L NEEDS ATTENDED SAFETY PRECAUTIONS IN PLACE WITH BED IN LOWEST POSITION, CALL LIGHT WITHIN REACH, BREAKS ON, SIDE RAILS UP. WILL ENDORSE TO NEXT SHIFT FOR GRACE.
--- NOTE | 2019-11-15 19:39 | NUR ---
MS/RN OPENING NOTES RECEIVED PATIENT IN BED, RESTING COMFORTABLY. ASLEEP. RESPIRATIONS EVEN AND UNLABORED, SKIN WARM TO TOUCH,RECEIVED ENDORSEMENT FROM AM RN FOR GRACE. BATHROOM WITH ASSIST, BRP, SKIN INTACT, LEFT AC HEP LOCK. TO MONITOR AND CONTINUE WITH CARE. BED LOCKED, CALL LIGHTS WITHIN REACH.
[2019-11-15 20:00] VITALS: BP 153/104
[2019-11-15 20:05] VITALS: BP 153/104
[2019-11-15] MEDS: ATORVASTATIN 10 MG TABLET PO SCH (21:45)
--- NOTE | 2019-11-16 02:50 | NUR ---
MS/RN NOTES PATIENT AWAKE, ALERT, REPORTED UNABLE TO SLEEP WELL DUE TO PAIN IN FEET, 8/10 LEVEL , NEEDED NORCO 5-325 MG PO REQUESTED, CHECK B/P WNL WILL MONITOR.
[2019-11-16] MEDS: DIAZEPAM 5 MG TABLET PO SCH ×2 (04:25→12:37)
--- NOTE | 2019-11-16 06:24 | NUR ---
308-1 MS/RN NOTES PATIENT ABLE TO REST AND SLEPT DURING THE NIGHT. ALERT, ORIENTED X3. COOPERATIVE TO CARE, REORIENTED AND MONITORED FOR ANY CHANGES. ATTENDED TO ALL NEEDS, BED LOCKED, CALL LIGHTS WITHIN REACH. WILL ENDORSE TO AM RN FOR GRACE.
[2019-11-16 06:37] LABS: BASOPHILS % (AUTO) 0.4 % (0.0-2.0); EOSINOPHILS % (AUTO) 0.1 % (0.0-6.0); HEMATOCRIT 46 % (33-45); HEMOGLOBIN 15.4 g/dL (11.5-14.8); LYMPHOCYTES # (AUTO) 2.6 /CMM (0.8-4.8); LYMPHOCYTES % (AUTO) 24.3 % (20.0-44.0); MEAN CORPUSCULAR HGB CONC 34 g/dl (31.0-36.0); MEAN CORPUSCULAR VOLUME 92 fL (82-100); MONOCYTES # (AUTO) 0.9 /CMM (0.1-1.30); MONOCYTES % (AUTO) 8.2 % (2.0-12.0); NEUTROPHILS # (AUTO) 7.3 /CMM (1.8-8.9); PLATELET COUNT (AUTO) 302 /CMM (150-450); WHITE BLOOD COUNT (AUTO) 10.9 K/uL (4.3-11.0)
[2019-11-16 06:45] LABS: CREATININE 0.9 mg/dL (0.6-1.3); MAGNESIUM 2.1 mg/dL (1.8-2.4); PHOSPHORUS 3.4 mg/dL (2.5-4.9); POTASSIUM 3.3 mmol/L (3.5-5.1)
--- NOTE | 2019-11-16 07:30 | NUR ---
MS RN OPENING NOTE PATIENT IN BED RESTING COMFORTABLY. PATIENT IN NO ACUTE DISTRESS. NO SOB NOTED. PATIENT BREATHING IS EVEN AND UNLABORED. PATIENT STATES NO PAIN AT THIS TIME. SAFETY PRECAUTIONS IN PLACE. PATIENT BED IS LOCKED AND IN LOWEST POSITION. CALL LIGHT WITHIN REACH. WILL CONTINUE TO MONITOR.
[2019-11-16 08:43] VITALS: BP 146/98
[2019-11-16 08:53] VITALS: BP 146/98
[2019-11-16] MEDS: GABAPENTIN 300 MG CAPSULE PO SCH ×3 (08:53→16:18)
[2019-11-16] MEDS: AMLODIPINE BESYLATE 5 MG TABLET PO SCH (08:53)
[2019-11-16] MEDS: ASPIRIN EC 81 MG TABLET.DR PO SCH (08:53)
[2019-11-16] MEDS: THYROID 30 MG TABLET PO SCH (08:53)
[2019-11-16] MEDS: DULOXETINE HCL 30 MG CAPSULE.DR PO SCH (08:53)
[2019-11-16] MEDS: ZIPRASIDONE 20 MG CAPSULE PO SCH ×2 (08:53→16:18)
[2019-11-16] MEDS: ENOXAPARIN SODIUM 40 MG/0.4 ML DISP.SYRIN SQ SCH (08:54)
[2019-11-16] MEDS: LEVOTHYROXINE SODIUM 137 MCG TABLET PO SCH (08:56)
--- NOTE | 2019-11-16 09:58 | NUR ---
INDIAN NANNY was consulted in regards to referring pt to a detox program by . Per notes, pt is a 69-year-old female with a history of anxiety, asthma, hypertension, hyperlipidemia who presented to the ER complaining of withdrawal symptoms. She states she does not have a prescription for opioids or benzodiazepines but uses fentanyl and Xanax regularly but she ran out a few days ago. Her symptoms include nervousness, jitteriness, mild generalized tremors, intermittent confusion, nausea. INDIAN NANNY contacted Kunal Rascon at [facility] and referred pt to their detox program. Kunal requested for INDIAN NANNY to fax clinicals to intake dept . ELLEN faxed clinicals as requested.
[2019-11-16] MEDS ORDERED: IV NS 0.9% 1,000 ML IV SCH (10:00)
[2019-11-16] MEDS ORDERED: POTASSIUM CHLORIDE 20 MEQ TAB.PRT.SR PO SCH (11:00)
--- NOTE | 2019-11-16 12:54 | NUR ---
ALEX received a message from Kunal Rascon at [facility] informing EQUIPMENT SERVICE TECHNICIAN the intake department is checking with pt's insurance and will f/u with ELLEN porras.
--- NOTE | 2019-11-16 15:15 | NUR ---
ALEX received a call from Kunal Escalante at [facility] informing SW, pt has a copay with Medicare for $1408. NETWORK DEVELOPMENT COORDINATOR met with the pt. Pt reports, she is able to pay the copay and has her credit card and checkbook with her. Per Kunal, they do not accept checks. NETWORK DEVELOPMENT COORDINATOR gave Kunal pt's cellphone number in regards to getting a payment. If payment is approved pt can leave by 6PM today per Kunal. Kunal to f/u regarding final disposition. renal case manager Cynthia has been updated with aforementioned information.
--- NOTE | 2019-11-16 15:30 | NUR ---
ALEX received a call from Beth at [phone] informing ACCOUNT ADJUSTER pt has been accepted and [facility] charter coach driver will be picking up the pt at 5PM. ACCOUNT ADJUSTER updated child welfare caseworker Cynthia and pt's bedside RN Alexandr. ALEX faxed discharge summary to Beth at .
--- NOTE | 2019-11-16 15:53 | NUR ---
MS RN NOTE PATIENT REFUSING SKIN ASSESSMENT. PATIENT STATES " THAT IS NOT NECESSARY, I DONT NEED A SKIN ASSESSMENT MY SKIN IS FINE". EDUCATED RISKS VS BENEFITS. PATIENT CONTINUED TO REFUSE.
--- NOTE | 2019-11-16 17:28 | NUR ---
MS PRESS HELPER NOTE PATIENT MEDICALLY CLEARED FOR DISCHARGE. PATIENT IN NO ACUTE DISTRESS. NO SOB NOTED. PATIENT BREATHING IS EVEN AND UNLABORED. DC INSTRUCTIONS PROVIDED. PATIENT VERBALIZED UNDERSTANDING. PATIENT IV REMOVED. ID BAND REMOVED. PATIENT SIGNED BELONGINGS LIST AND HAS BELONGINGS WITH HER. PATIENT REFUSED SKIN ASSESSMENT, DESPITE RISKS VS BENEFITS. PATIENT KEPT CLEAN, DRY AND COMFORTABLE THROUGHOUT SHIFT. PATIENT NEEDS AND CONCERNS ADDRESSED. PATIENT GOING TO [facility]. NO REPORT TO CENTER NEEDED PER CHARGE NURSE SOLA. PATIENT WENT BY WHEEL CHAIR TO TRANSPORTATION PICKUP BY [facility]. AWARE OF DISCHARGE.
== END 2019-11-16 17:15 | DRG 896 ==
LOC: ER 08:39 → MED 10:43
PROVIDERS: ADMIT Nurse Practitioner Acute Care; ATTEND Nurse Practitioner Acute Care
DX: F13.239 Sedative, hypnotic or anxiolytic dependence with withdrawal, unspecified (principal); G92 Toxic encephalopathy; F31.81 Bipolar II disorder; F11.23 Opioid dependence with withdrawal; F41.9 Anxiety disorder, unspecified; J45.909 Unspecified asthma, uncomplicated; M41.9 Scoliosis, unspecified; E78.5 Hyperlipidemia, unspecified; M81.0 Age-related osteoporosis without current pathological fracture; Z79.82 Long term (current) use of aspirin; Z79.899 Other long term (current) drug therapy; I10 Essential (primary) hypertension; E03.9 Hypothyroidism, unspecified; Z98.890 Other specified postprocedural states; Z83.3 Family history of diabetes mellitus; Z82.49 Family history of ischemic heart disease and other diseases of the circulatory system; F17.200 Nicotine dependence, unspecified, uncomplicated; E11.65 Type 2 diabetes mellitus with hyperglycemia; F39 Unspecified mood [affective] disorder
CPT/HCPCS: 36415; 70450-TC; 80048-TC; 80061-TC; 80076-TC; 80305; 81000-TC; 83735-TC; 84100-TC; 84439-TC; 84443-TC; 84484-TC; 85025-TC; 87081-TC; 97116-TC; 97530-TC; G0378; G0480; J1650; J2270; J7030

== ENCOUNTER 2019-12-19 16:49 | Emergency (ER) | payer MEDICARE ==
[~2019-12-19] VITALS: Ht 149.9 cm; Wt 45.4 kg
[~2019-12-19 16:49] MED LIST changes: -ALPR1TAB7 PO; -BUTA1CAP46 PO; -CARI350T PO; -CLON0.5T PO; +DULO30CA2 PO; +GABA-534 PO; +ICOS1CAP PO; +LEVO137T2; -LEVO500T75 PO; +LISD50CA2 PO; -VENL150T PO; -[UNRECOGNIZED DRUG - CODE] PO
--- NOTE | 2019-12-19 16:55 | NUR ---
[id number] fr home. per ems "chest pressure x today." pt c/o anxiety. On room air, breathing evenly and unlabored. connected to the monitor and pulse ox. kept comfortable, will continue to monitor accordingly.
[2019-12-19 17:01] LABS: BASOPHILS # (AUTO) 0.1 /CMM (0.0-0.2); BASOPHILS % (AUTO) 0.7 % (0.0-2.0); EOSINOPHILS % (AUTO) 0.6 % (0.0-6.0); HEMATOCRIT 45 % (33-45); HEMOGLOBIN 15.2 g/dL (11.5-14.8); LYMPHOCYTES # (AUTO) 2.1 /CMM (0.8-4.8); LYMPHOCYTES % (AUTO) 22.1 % (20.0-44.0); MEAN CORPUSCULAR HGB CONC 34 g/dl (31.0-36.0); MEAN CORPUSCULAR VOLUME 96 fL (82-100); MONOCYTES # (AUTO) 0.5 /CMM (0.1-1.30); NEUTROPHILS # (AUTO) 6.8 /CMM (1.8-8.9); NEUTROPHILS % (AUTO) 71.6 % (43.0-81.0); PLATELET COUNT (AUTO) 279 /CMM (150-450); RED BLOOD CELL COUNT(AUTO) 4.72 MIL/uL (4.0-5.2); WHITE BLOOD COUNT (AUTO) 9.6 K/uL (4.3-11.0)
[2019-12-19 17:08] LABS: CALCIUM, SERUM 9.8 mg/dL (8.5-10.1); CARBON DIOXIDE 31 mmol/L (21-32); CHLORIDE 99 mmol/L (98-107); CREATININE 0.8 mg/dL (0.6-1.3); GLUCOSE 127 mg/dL (74-106); POTASSIUM 3.8 mmol/L (3.5-5.1); SODIUM SERUM 136 mmol/L (136-145); UREA NITROGEN, BLOOD 16 mg/dL (7-18)
[2019-12-19] MEDS ORDERED: LORAZEPAM 1 MG TABLET ONE (17:08)
[2019-12-19] MEDS ORDERED: LORAZEPAM 1 MG TABLET PO ONE (17:30)
[2019-12-19] MEDS ORDERED: LORAZEPAM INJ 2 MG/ML VIAL IV ONE (17:30)
[2019-12-19 19:10] VITALS: BP 139/73
--- NOTE | 2019-12-19 19:10 | NUR ---
Patient discharged to home in stable condition. Written and verbal after care instructions given. Patient verbalizes understanding of instruction.IV removed. Catheter intact and site benign. Pressure and 4x4 applied to site. No bleeding noted.
== END 2019-12-19 19:10 | disposition home or self-care (01) ==
LOC: ER 16:54
DX: R07.89 Other chest pain (principal); F41.9 Anxiety disorder, unspecified; Z79.82 Long term (current) use of aspirin; Z79.899 Other long term (current) drug therapy
CPT/HCPCS: 36415; 71045-TC; 80048-TC; 84484-TC; 85025-TC